=== PATIENT | female | born 1975 | race Caucasian/White ===

== ENCOUNTER 2020-05-30 08:00 | Inpatient (IN) | payer BC, OTHER ==
[~2020-05-30 08:00] MED LIST: Lidocaine 1%/Sod Bicarbonate in NS 8.4% 1 ML Syringe IDERM PRN; Sodium Chloride 0.9% 10 ML Syringe FLUSH PRN
[2020-05-30] MEDS: Lactated Ringers 1,000 ML IV SCH ×2 (08:50→11:57)
--- NOTE | 2020-05-30 08:59 | PCM.PREANE ---
Preanesthetic Assessment - Anesthesia/Transfusion/Family Hx Anesthesia History: Prior Anesthesia Without Reaction Family History of Anesthesia Reaction: No Transfusion History: No Prior Transfusion(s) Intubation History: Unknown - Review of Systems General: No Symptoms Pulmonary: No Symptoms (ETOH:occasionally) Cardiovascular: No Symptoms Gastrointestinal: No Symptoms (GERD-tums), Constipation (occasional), Diarrhea (occasionally) Neurological: No Symptoms Other: Reports: Sinus Problem (seasonal allergies), Depression, Anxiety - Physical Assessment NPO Status Date: 05/29/20 NPO Status Time: 19:00 Vital Signs: HR: 74 B/P: 117/77 Sat: 98% Temp: 98.4 Resp: 16 Height: 1.57 m Weight: 60 kg ASA Class: 2 Mental Status: Alert & Oriented x3 Airway Class: Mallampati = 2 Dentition: Reports: Normal Dentition, Caries Thyro-Mental Finger Breadths: 3 Mouth Opening Finger Breadths: 3 ROM/Head Extension: Full Lungs: Clear to Auscultation, Normal Respiratory Effort Cardiovascular: Regular Rate, Regular Rhythm, No Murmurs - Lab Values: All labs reviewed and noted and within acceptable ranges to proceed with scheduled procedure. - Allergies Allergies/Adverse Reactions: Allergies Allergy/AdvReac Type Severity Reaction Status Date / Time codeine Allergy Airway Verified 05/29/20 13:40 Tightness Sulfa (Sulfonamide Allergy Hives Verified 05/29/20 13:40 Antibiotics) - Anesthesia Plan Pre-Op Medication Ordered: None - Acknowledgements Anesthesia Type Planned: General Anesthesia Pt an Appropriate Candidate for the Planned Anesthesia: Yes Alternatives and Risks of Anesthesia Discussed w Pt/Guardian: Yes Pt/Guardian Understands and Agrees with Anesthesia Plan: Yes PreAnesthesia Questionnaire - Past Health History Medical/Surgical History: Denies Medical/Surgical History HEENT History: Reports: Impaired Vision, Other (See Below) Other HEENT History: wears glasses/contacts Cardiovascular History: Reports: None Respiratory History: Reports: None Gastrointestinal History: Reports: Helicobacter Pylori PLATEN [employer]EDER History: Reports: Other (See Below) Other OB/BYN History: pelvic pressure Musculoskeletal History: Reports: Other (See Below) Other Musculoskeletal History: broken collar bone Neurological History: Reports: None Psychiatric History: Reports: None Endocrine/Metabolic History: Reports: None Hematologic History: Reports: None Immunologic History: Reports: None Oncologic (Cancer) History: Reports: None Dermatologic History: Reports: Other (See Below) Other Dermatologic History: acne - Infectious Disease History Infectious Disease History: Reports: None - Past Surgical History Head Surgeries/Procedures: Reports: None HEENT Surgical History: Reports: None Cardiovascular Surgical History: Reports: None GI Surgical History: Reports: Cholecystectomy Female Surgical History: Reports: Cystoscopy, Other (See Below) Other Female Surgeries/Procedures: stent, uretoscopy Endocrine Surgical History: Reports: None Neurological Surgical History: Reports: None Oncologic Surgical History: Reports: None Dermatological Surgical History: Reports: None - SUBSTANCE USE Smoking Status *Q: Never Smoker Second Hand Smoke Exposure: No Recreational Drug Use History: No - HOME MEDS Home Medications: Home Meds Flaxseed Oil [Flaxseed] 1,000 mg PO DAILY 05/29/20 [History] Ibuprofen 400 - 600 mg PO Q6H PRN 05/29/20 [History] L.acidoph,Paracasei, B.lactis [Probiotic] 1 cap PO DAILY 05/29/20 [History] Multivitamin 1 tab PO DAILY 05/29/20 [History] Spironolactone [Aldactone] 50 mg PO BID 05/29/20 [History] - CURRENT (IN HOUSE) MEDS Current Meds: Current Medications Lactated Ringer's (Ringers, Lactated) 1,000 mls @ 125 mls/hr IV ASDIRECTED SHAHAB Stop: 05/30/20 23:00 Lidocaine/Sodium Bicarbonate (Buffered Lidocaine 1% In Ns 8.4%) 0.25 ml IDERM ONETIME PRN PRN Reason: Prior to IV Start Stop: 05/30/20 18:00 Sodium Chloride (Saline Flush) 10 ml FLUSH ASDIRECTED PRN PRN Reason: Keep Vein Open Stop: 05/30/20 18:00
[2020-05-30] MEDS ORDERED: EPINEPHrine 1 MG/1 ML Amp ONE (09:41)
[2020-05-30] MEDS ORDERED: Morphine PF 10 MG/10 ML SDV ONE (09:41)
[2020-05-30] MEDS ORDERED: Propofol 200 MG/20 ML SDV ONE ×2 (09:42→11:09)
[2020-05-30] MEDS ORDERED: fentaNYL 100 MCG/2 ML SDV ONE (09:42)
[2020-05-30] MEDS ORDERED: ceFAZolin 1 GM Vial ONE (09:42)
[2020-05-30] MEDS ORDERED: Midazolam 1 MG/ML 2 ML SDV ONE (09:48)
[2020-05-30] MEDS: Bupivacaine 0.5% 30 ML SDV ONE ×2 (10:12→10:27)
[2020-05-30] MEDS ORDERED: Lactated Ringers 1,000 ML ONE (10:13)
[2020-05-30] MEDS ORDERED: ePHEDrine Sulfate/0.9% NaCl/Pf 25 MG/5 ML SYRINGE IV ONE (10:30)
[2020-05-30] MEDS ORDERED: Ondansetron 4 MG/2 ML SDV ONE (10:47)
[2020-05-30] MEDS ORDERED: Ondansetron 4 MG/2 ML SDV IVPUSH PRN ×2 (10:52→14:13)
[2020-05-30] MEDS ORDERED: fentaNYL 100 MCG/2 ML SDV IVPUSH PRN (10:52)
[2020-05-30] MEDS ORDERED: diphenhydrAMINE 50 MG/ML SDV IVPUSH PRN ×2 (10:52→14:13)
[2020-05-30] MEDS ORDERED: HYDROmorphone 0.5 MG/0.5 ML Syringe IVPUSH PRN (10:53)
--- NOTE | 2020-05-30 11:43 | PCM.OPNOTE ---
- General Post-Op/Procedure Note Date of Surgery/Procedure: 05/30/20 Operative Procedure(s): total abdominal hysterectomy with bilateral salpingectomy Findings: Large pedunculated fibroid on uterus, normal pelvic anatomy otherwise, bilateral paratubal cysts. 990g uterus Pre Op Diagnosis: Fibroid uterus, pelvic pressure symptoms. Post-Op Diagnosis: Same Anesthesia Technique: MAC, Spinal Primary Surgeon: Pastora Benítez Anesthesia Provider: Ang Hernandez Diabetologist: Jordana Gayle Role of Diabetologist: safety, retraction Fluid Replacement, Intraop: 2,000 Output, Urine Amount: 300 EBL in mLs: 75 Complications: none Condition: Good Free Text/Narrative:: Under spinal anaesthetic the patient was placed in the supine position. Examination under anesthesia showed the uterus to be 20+ week size and . With a stapleton catheter inserted, the patient was prepped and draped in the usual sterile fashion. A Pfannensteil incision was made. The incision was carried down to the fascia with sharp dissection. The fascia was incised transversely and dissected off the rectus muscle using (blunt/sharp) dissection. Electrocautery was used for hemostasis. The peritoneum was opened taking care not to injure any underlying structures. Laparotomy revealed no obvious abnormalities. Large fibroid on back side of uterus A Idris retractor was placed and the bowel was packed away into the upper abdomen to improve visualization and protect adjacent tissue. Clamp placed across base of fibroid and it was removed sharply. Clamp suture ligated. The tubes and ovaries appeared normal bilaterally. Fallopian tubes removed by sequentially ligating along mesosalpinx with ligasure. The cornea were grasped and the uterus elevated. The round ligament on the left was grasped and divided using cautery and then suture ligated. The peritoneum was opened lateral to the infundibulopelvic ligaments. The anterior leaf of the broad ligament was divided and a bladder flap created. The retroperitoneal space was then dissected out. The ureters were identified and found to be well low in the pelvis and clear of the surgical field. The uteroovarian ligament was clamped and ligated with ligasure. The same procedure was carried out on the right with the ureter again found to be well low in the pelvis and clear of the surgical field. Once the anterior leaf of the broad ligament was completely divided the bladder was taken down off the lower segment of the uterus and the cervix using cautery. The uterine vessels were skeletonized bilaterally. The uterine vessels were bilaterally clamped ligated with ligasure. The cardinal ligaments were bilaterally clamped and ligated with ligasure. The uteroscral ligaments were bilaterally clamped and ligated. One further pedicle was required to enter the vagina. The cervix was then divided sharply from the vagina. The uterus, tubes and cervix were all sent to pathology Both corners of the vaginal vault were secured and the vault was closed with a running locking suture . All pedicles were then sequentially checked for hemostasis which appeared excellent. The bowel pack was then removed and the omentum and small bowel were assessed f or injury and hemostasis. Fascia closed with 1 PDS and skin with 4-0 monocryl on a Ravindra needle. Patient taken to pacu in good condition.
--- NOTE | 2020-05-30 11:47 | PCM.POSTAN ---
POST ANESTHESIA ASSESSMENT - MENTAL STATUS Mental Status: Alert, Oriented - VITAL SIGNS Vital Signs: Last Vital Signs Temp 97.8 F 05/30/20 11:35 Pulse 74 05/30/20 08:45 Resp 14 05/30/20 11:45 BP 117/84 05/30/20 11:45 Pulse Ox 95 05/30/20 11:45 - RESPIRATORY Respiratory Status: Respiratory Rate WNL, Airway Patent, O2 Saturation Stable - CARDIOVASCULAR CV Status: Pulse Rate WNL, Blood Pressure Stable - GASTROINTESTINAL GI Status: No Symptoms - PAIN Pain Score: 0 (post SAB) - POST OP HYDRATION Hydration Status: Adequate & Stable
[2020-05-30] MEDS ORDERED: Ibuprofen 400 MG Tab PO PRN (12:26)
[2020-05-30] MEDS ORDERED: Ketorolac 15 MG/ML SDV IVPUSH PRN (12:26)
[2020-05-30] MEDS ORDERED: Acetaminophen/oxyCODONE 325-5 MG Tab PO PRN (12:26)
[2020-05-30] MEDS ORDERED: Ibuprofen 600 MG Tab PO PRN (16:20)
[2020-05-30] MEDS: Ketorolac 30 MG/ML SDV IVPUSH PRN (16:28)
[2020-05-30] MEDS: Acetaminophen/oxyCODONE 325-5 MG Tab PO PRN (20:42)
[2020-05-31] MEDS: Ketorolac 30 MG/ML SDV IVPUSH PRN ×2 (00:10→09:18)
[2020-05-31] MEDS: Acetaminophen/oxyCODONE 325-5 MG Tab PO PRN ×2 (05:15→13:50)
--- NOTE | 2020-05-31 07:26 | PCM48HPAN ---
Post Anesthesia Note - EVALUATION WITHIN 48HRS OF ANESTHETIC Vital Signs in Normal Range: Yes Patient Participated in Evaluation: Yes Respiratory Function Stable: Yes Airway Patent: Yes Cardiovascular Function Stable: Yes Hydration Status Stable: Yes Pain Control Satisfactory: Yes Nausea and Vomiting Control Satisfactory: Yes Mental Status Recovered: Yes Vital Signs: Last Vital Signs Temp 36.6 C 05/31/20 05:13 Pulse 89 05/31/20 05:13 Resp 18 05/31/20 05:13 BP 103/54 L 05/31/20 05:13 Pulse Ox 95 05/31/20 05:13 - COMMENTS/OBSERVATIONS Free Text/Narrative:: Itching throughout the evening, took benadryl once last evening with some relief. Noris feels it is improving and does not need any additional treatment at this time.
--- NOTE | 2020-05-31 08:57 | PCM.DCSUM1 ---
Discharge Summary - Hospital Course Diagnosis: Stroke: No - Discharge Data Discharge Date: 05/31/20 Discharge Disposition: Home, Self-Care 01 Condition: Good - Referral to Home Health Primary Care Physician: Pastora Benítez MD - Patient Summary/Data Operative Procedure(s) Performed: total abdominal hysterectomy with bilateral salpingectomy - Patient Instructions Diet: Usual Diet as Tolerated Activity: No Strenuous Activities Activity, Other: pelvic rest Driving: Do Not Drive Showering/Bathing: May Shower Wound/Incision Care: Keep Operative Site/Wound Site Clean and Dry Notify Provider of: Fever, Increased Pain, Swelling and Redness, Drainage, Nausea and/or Vomiting - Discharge Plan *PRESCRIPTION DRUG MONITORING PROGRAM REVIEWED*: No *COPY OF PRESCRIPTION DRUG MONITORING REPORT IN PATIENT BRIANNE: No Home Medications: Home Meds Flaxseed Oil [Flaxseed] 1,000 mg PO DAILY 05/29/20 [History] Ibuprofen 400 - 600 mg PO Q6H PRN 05/29/20 [History] L.acidoph,Paracasei, B.lactis [Probiotic] 1 cap PO DAILY 05/29/20 [History] Multivitamin 1 tab PO DAILY 05/29/20 [History] Spironolactone [Aldactone] 50 mg PO BID 05/29/20 [History] Referrals: Pastora Benítez MD [Primary Care Provider] - - Discharge Summary/Plan Comment DC Time >30 min.: No - General Info Date of Service: 05/31/20 Functional Status: Reports: Pain Controlled - Review of Systems General: Reports: No Symptoms HEENT: Reports: No Symptoms Pulmonary: Reports: No Symptoms Cardiovascular: Reports: No Symptoms Gastrointestinal: Reports: No Symptoms Genitourinary: Reports: No Symptoms Musculoskeletal: Reports: No Symptoms Skin: Reports: No Symptoms Neurological: Reports: No Symptoms Psychiatric: Reports: No Symptoms - Patient Data Vitals - Most Recent: Last Vital Signs Temp 36.6 C 05/31/20 07:45 Pulse 64 05/31/20 07:45 Resp 20 05/31/20 07:45 BP 95/50 L 05/31/20 07:45 Pulse Ox 99 05/31/20 07:45 Weight - Most Recent: 60.101 kg I&O - Last 24 hours: Intake & Output 05/30/20 05/31/20 05/31/20 22:59 06:59 14:59 Intake Total 1000 1820 Output Total 200 2225 Balance 800 -405 Lab Results - Last 24 hrs: Laboratory Results - last 24 hr 05/30/20 05/30/20 05/30/20 Range/Units 08:53 08:53 08:53 WBC 6.02 (3.98-10.04) K/mm3 RBC 4.90 (3.98-5.22) M/mm3 Hgb 14.4 D (11.2-15.7) gm/dl Hct 43.1 (34.1-44.9) % MCV 88.0 D (79.4-94.8) fl MCH 29.4 (25.6-32.2) pg MCHC 33.4 (32.2-35.5) g/dl RDW Std Deviation 41.4 (36.4-46.3) fL Plt Count 370 H D (182-369) K/mm3 MPV 8.9 L (9.4-12.3) fl Neut % (Auto) 65.0 (34.0-71.1) % Lymph % (Auto) 22.8 (19.3-51.7) % [place] % (Auto) 7.5 (4.7-12.5) % Eos % (Auto) 3.5 (0.7-5.8) Baso % (Auto) 1.0 (0.1-1.2) % Neut # (Auto) 3.92 (1.56-6.13) K/mm3 Lymph # (Auto) 1.37 (1.18-3.74) K/mm3 [place] # (Auto) 0.45 H (0.24-0.36) K/mm3 Eos # (Auto) 0.21 (0.04-0.36) K/mm3 Baso # (Auto) 0.06 (0.01-0.08) K/mm3 Sodium 138 (136-145) mEq/L Potassium 3.7 (3.5-5.1) mEq/L Chloride 103 (98-107) mEq/L Carbon Dioxide 26 (21-32) mEq/L Anion Gap 12.7 (5-15) Blood Type A POSITIVE Gel Antibody Screen Negative 05/31/20 Range/Units 05:33 WBC 8.13 (3.98-10.04) K/mm3 RBC 4.06 (3.98-5.22) M/mm3 Hgb 11.8 D (11.2-15.7) gm/dl Hct 37.0 (34.1-44.9) % MCV 91.1 D (79.4-94.8) fl MCH 29.1 (25.6-32.2) pg MCHC 31.9 L (32.2-35.5) g/dl RDW Std Deviation 41.9 (36.4-46.3) fL Plt Count 282 D (182-369) K/mm3 MPV 9.3 L (9.4-12.3) fl Neut % (Auto) 68.4 (34.0-71.1) % Lymph % (Auto) 18.8 L (19.3-51.7) % [place] % (Auto) 9.8 (4.7-12.5) % Eos % (Auto) 2.5 (0.7-5.8) Baso % (Auto) 0.4 (0.1-1.2) % Neut # (Auto) 5.56 (1.56-6.13) K/mm3 Lymph # (Auto) 1.53 (1.18-3.74) K/mm3 [place] # (Auto) 0.80 H (0.24-0.36) K/mm3 Eos # (Auto) 0.20 (0.04-0.36) K/mm3 Baso # (Auto) 0.03 (0.01-0.08) K/mm3 Sodium (136-145) mEq/L Potassium (3.5-5.1) mEq/L Chloride (98-107) mEq/L Carbon Dioxide (21-32) mEq/L Anion Gap (5-15) Blood Type Gel Antibody Screen Med Orders - Current: Current Medications Ibuprofen (Motrin) 600 mg PO Q6H PRN PRN Reason: Pain (mild 1-3) Ketorolac Tromethamine (Toradol) 30 mg IVPUSH Q8H PRN PRN Reason: Pain (moderate 4-6) Last Admin: 05/31/20 00:10 Dose: 30 mg Documented by: Ondansetron HCl (Zofran) 4 mg IVPUSH ONETIME PRN PRN Reason: Nausea Oxycodone/Acetaminophen (Percocet 325-5 Mg) 1 tab PO Q4H PRN PRN Reason: Pain (moderate 4-6) Last Admin: 05/31/20 05:15 Dose: 1 tab Documented by: Oxycodone/Acetaminophen (Percocet 325-5 Mg) 2 tab PO Q4H PRN PRN Reason: Pain (severe 7-10) Discontinued Medications Bupivacaine HCl (Marcaine 0.5%) Confirm Administered Dose 30 ml .ROUTE .STK-MED ONE Stop: 05/30/20 09:02 Last Admin: 05/30/20 10:12 Dose: 20 ml Documented by: Cefazolin Sodium (Ancef) Confirm Administered Dose 2 gm .ROUTE .STK-MED ONE Stop: 05/30/20 09:43 Diphenhydramine HCl (Benadryl) 25 mg IVPUSH Q6H PRN PRN Reason: Pruritis Diphenhydramine HCl (Benadryl) 25 mg IVPUSH ONETIME PRN PRN Reason: Itching Last Admin: 05/30/20 14:26 Dose: 25 mg Documented by: Ephedrine Sulfate (Ephedrine 25 Mg/5 Ml Syringe) Confirm Administered Dose 25 mg IV .STK-MED ONE Stop: 05/30/20 10:31 Epinephrine HCl (Adrenalin) Confirm Administered Dose 1 mg .ROUTE .STK-MED ONE Stop: 05/30/20 09:42 Fentanyl (Sublimaze) Confirm Administered Dose 100 mcg .ROUTE .STK-MED ONE Stop: 05/30/20 09:43 Fentanyl (Sublimaze) 50 mcg IVPUSH Q5M PRN PRN Reason: Pain Hydromorphone HCl (Dilaudid) 0.5 mg IVPUSH ONETIME PRN PRN Reason: Pain (severe 7-10) Lactated Ringer's (Ringers, Lactated) 1,000 mls @ 125 mls/hr IV ASDIRECTED SHAHAB Stop: 05/30/20 23:00 Last Admin: 05/30/20 11:57 Dose: 125 mls/hr Documented by: Lactated Ringer's (Ringers, Lactated) Confirm Administered Dose 1,000 mls @ as directed .ROUTE .STK-MED ONE Stop: 05/30/20 10:14 Ibuprofen (Motrin) 600 mg PO Q6H PRN PRN Reason: Pain (mild 1-3) Ketorolac Tromethamine (Toradol) 30 mg IVPUSH Q8H PRN PRN Reason: Pain (moderate 4-6) Stop: 06/04/20 11:45 Lidocaine/Sodium Bicarbonate (Buffered Lidocaine 1% In Ns 8.4%) 0.25 ml IDERM ONETIME PRN PRN Reason: Prior to IV Start Stop: 05/30/20 18:00 Last Admin: 05/30/20 08:50 Dose: 0.25 ml Documented by: Midazolam HCl (Versed 1 Mg/Ml) Confirm Administered Dose 2 mg .ROUTE .STK-MED ONE Stop: 05/30/20 09:49 Miscellaneous Medication (Phenylephrine 1 Mg/10 Ml-Ns) Confirm Administered Dose 1 mg IV .STK-MED ONE Stop: 05/30/20 11:08 Morphine Sulfate (Duramorph Pf) Confirm Administered Dose 10 mg .ROUTE .STK-MED ONE Stop: 05/30/20 09:42 Ondansetron HCl (Zofran) Confirm Administered Dose 4 mg .ROUTE .STK-MED ONE Stop: 05/30/20 10:48 Ondansetron HCl (Zofran) 4 mg IVPUSH ONETIME PRN PRN Reason: Nausea/Vomiting Propofol (Diprivan 20 Ml) Confirm Administered Dose 400 mg .ROUTE .STK-MED ONE Stop: 05/30/20 09:43 Propofol (Diprivan 20 Ml) Confirm Administered Dose 200 mg .ROUTE .STK-MED ONE Stop: 05/30/20 11:10 Sodium Chloride (Saline Flush) 10 ml FLUSH ASDIRECTED PRN PRN Reason: Keep Vein Open Stop: 05/30/20 18:00 - Exam General: Reports: Alert, Oriented HEENT: Reports: Pupils Equal, Pupils Reactive, EOMI, Mucous Membr. Moist/[place]: Reports: Supple Lungs: Reports: Clear to Auscultation, Normal Respiratory Effort Cardiovascular: Reports: Regular Rate, Regular Rhythm GI/Abdominal Exam: Normal Bowel Sounds, Soft, Non-Tender, No Organomegaly Rectal (Female) Exam: Normal Exam, Normal Rectal Tone Back Exam: Reports: Normal Inspection, Full Range of Motion Extremities: Normal Inspection, Normal Range of Motion, Non-Tender, No Pedal Edema, Normal Capillary Refill Skin: Reports: Warm, Dry, Intact Wound/Incisions: Reports: Healing Well Neurological: Reports: No New Focal Deficit Psy/Mental Status: Reports: Alert, Normal Affect, Normal Mood
== END 2020-05-31 14:13 | disposition home or self-care (01) | DRG 743 ==
LOC: JD.MS 08:29
PROVIDERS: ADMIT Obstetrics & Gynecology; ATTEND Obstetrics & Gynecology
PROC: 0UT90ZZ Resection of Uterus, Open Approach (ICD-10-PCS; principal; 2020-05-30)
PROC: 0UB70ZZ Excision of Bilateral Fallopian Tubes, Open Approach (ICD-10-PCS; 2020-05-30)
DX: D25.9 Leiomyoma of uterus, unspecified (principal); Z88.5 Allergy status to narcotic agent; Z88.2 Allergy status to sulfonamides
CPT/HCPCS: 00840; 36415; 80051; 81025; 85025; 86850; 86900; 86901; 94762; A9270-GY; J0171; J0690; J1200; J1885; J2250; J2270; J2370; J2405; J2704; J3010; J3490; J7120